=== PATIENT | female | born 1980 | race Caucasian/White ===

== ENCOUNTER 2018-05-29 04:49 | Emergency (ER) | payer OTHER ==
[~2018-05-29] VITALS: Ht 160 cm; Wt 100.2 kg
[2018-05-29 05:11] VITALS: Ht 160 cm; Wt 100.2 kg
[2018-05-29 06:42] VITALS: BP 107/60
== END 2018-05-29 06:42 | disposition home or self-care (01) ==
LOC: ED 04:49
DX: F41.9 Anxiety disorder, unspecified (principal); M79.7 Fibromyalgia; Z98.84 Bariatric surgery status